=== PATIENT | female | born 2000 | race Caucasian/White ===

== ENCOUNTER 2023-02-06 12:40 | Emergency (ER) | payer OTHER, SELFPAY ==
[2023-02-06 12:53] VITALS: BP 101/77; PULSE 71; RESP 16; TEMP 36.9; O2SAT 100
--- NOTE | 2023-02-06 12:57 | ED.SKABFB ---
HPI - Skin/Abscess/Foreign Bdy General Chief complaint: Skin/Abscess/Foreign Body Stated complaint: RASH Time Seen by Provider: 02/06/23 12:57 Source: RN notes reviewed and old records reviewed Mode of arrival: ambulatory Limitations: no limitations History of Present Illness HPI narrative: 22 year old female accompanied by father with complaints of rash to her face which is fine with slightly pink areas noted over the past several days which is itchy. Patient reports that she has had this same rash in the past and has used Clobestasol ointment but tube she has is . Patient reports that prior to rash starting she noted dorm room hot and she had a lot of sweating. Patient reports she is afraid to let it progress had really bad rash on face in the past and doesn't want it to progress to that situation. MD complaint: rash Onset (ago): day(s) (3-4) Treatments prior to arrival: OTC topical medication Related Data Home Medications Medication Instructions Recorded Confirmed etonogestrel 68 mg subdermal 1 implant subdermal ONCE 02/06/23 02/06/23 implant (Nexplanon) multivitamin 1 tablet PO DAILY 02/06/23 02/06/23 sertraline 25 mg tablet 25 mg PO DAILY 02/06/23 02/06/23 Allergies Allergy/AdvReac Type Severity Reaction Status Date / Time cefdinir Allergy Other Verified 02/06/23 12:57 Review of Systems Review of Systems: CONSTITUTIONAL: Denies fever, chills, or sweats. CARDIOVASCULAR: Denies chest pain, palpitations, or edema. RESPIRATORY: Denies cough or dyspnea. SKIN: Reports patchy fine rash on face that is itchy pinkish areas on chin and cheeks MUSCULOSKELETAL: Denies joint pain or myalgia. NEUROLOGIC: Denies headache, numbness, or weakness. All systems reviewed & are unremarkable except as noted in HPI and below PMFSH Past Medical History Medical History (Updated 02/08/23 @ 06:53 by Lashonda Fulton NP) OCD (obsessive compulsive disorder) Tourettes syndrome Social History Social History (Updated 02/08/23 @ 06:53 by Lashonda Fulton NP) Smoking status: Never smoker Alcohol intake: never Substance use: never Living arrangements: with roommate(s) Occupation/Education: student Gender identity (if verbalized by the patient): Female Comments At time of signature, agree with nursing past medical, surgical, social and family history. There is no relevant family history pertinent to the presenting complaint Exam Narrative: GENERAL: Well-appearing, well-nourished, and in no acute distress. HEAD: Normocephalic, atraumatic. EYES: PERRLA, conjunctivae clear, and EOMI. ENT: Mucous membranes moist. Oropharynx without edema, erythema or lesions. NECK: Supple. No lymphadenopathy CHEST: Clear to auscultation. No respiratory distress.SAO2 100% on room air HEART: Regular rate and rhythm. SKIN: Warm, dry.? Patches of fine raised rash to face with pinkish areas on chin and cheeks is itchy NEURO:? Alert and oriented x3. PSYCH: Normal mood and affect Course Course Emergency Course: Patient is aware of diagnosis, understands and agrees to treatment plan.? Anticipatory guidance given.? Patient agrees to follow-up as directed and is aware of reasons to seek care at the emergency department. Portions of this record may have been created with voice recognition software Level of Care: Express Care Visit Vital Signs Vital signs: Vital Signs Temperature 36.9 C 02/06/23 12:53 Pulse Rate 71 02/06/23 12:53 Respiratory Rate 16 02/06/23 12:53 Blood Pressure 101/77 02/06/23 12:53 Pulse Oximetry 100 02/06/23 12:53 Temperature 36.9 C 02/06/23 12:53 Pulse Rate 71 02/06/23 12:53 Respiratory Rate 16 02/06/23 12:53 Blood Pressure 101/77 02/06/23 12:53 Pulse Oximetry 100 02/06/23 12:53 Reviewed MDM - Skin/Abscess/Foreign Bdy MDM Narrative Medical decision making narrative: Does not appear at this time to be erythema multiforme, bullous, SJS, TEN; no e
== END 2023-02-06 13:15 | disposition home or self-care (01) ==
PROVIDERS: Emergency Provider Registered Nurse
DX: L25.9 Unspecified contact dermatitis, unspecified cause (principal); F42.9 Obsessive-compulsive disorder, unspecified; F95.2 Tourette's disorder
CPT/HCPCS: 99213; G0463

== ENCOUNTER 2024-03-18 14:52 | Emergency (ER) | payer OTHER, SELFPAY ==
[2024-03-18 15:03] VITALS: BP 99/55; PULSE 72; RESP 16; TEMP 37.1; O2SAT 99
--- NOTE | 2024-03-18 15:30 | ED.SKABFB ---
HPI - Skin/Abscess/Foreign Bdy General Chief complaint: Skin/Abscess/Foreign Body Stated complaint: Skin Irritation Time Seen by Provider: 03/18/24 15:30 Source: patient, RN notes reviewed and old records reviewed Mode of arrival: ambulatory Limitations: no limitations History of Present Illness HPI narrative: 23-year-old female presents to the [facility] with complaints a facial rest. Patient states she has had a couple times and usually gets a steroid cream and a oral steroid. Has not seen a primary nor inpatient pharmacist for her issue. Describes it is being very itchy Related Data Home Medications Medication Instructions Recorded Confirmed etonogestrel 68 mg subdermal 1 implant subdermal ONCE 02/06/23 03/18/24 implant (Nexplanon) multivitamin 1 tablet PO DAILY 02/06/23 03/18/24 sertraline 25 mg tablet 25 mg PO DAILY 02/06/23 03/18/24 Allergies Allergy/AdvReac Type Severity Reaction Status Date / Time cefdinir AdvReac Intermediate Other Verified 03/18/24 14:57 Review of Systems Review of Systems: All systems reviewed & are unremarkable except as noted in HPI and below Constitutional: Constitutional: Reports no additional constitutional complaints Eyes: Eyes: Reports no additional eye complaints ENT: Reports system reviewed and no additional complaints, except as documented Cardiovascular: Cardiovascular: Reports no additional cardiovascular complaints, Denies chest pain and Denies dyspnea Respiratory: Respiratory: Reports no additional respiratory complaints, Denies chest congestion, Denies cough and Denies dyspnea Gastrointestinal: Gastrointestinal: Reports no additional gastrointestinal complaints, Denies abdominal pain, Denies nausea and Denies vomiting Musculoskeletal: Musculoskeletal: Reports no additional musculoskeletal complaints Integumentary/Breasts: Skin/Breast: Reports as per HPI Neurologic: Reports system reviewed and no additional complaints, except as documented Psychiatric: Psychiatric: Reports no additional psychiatric complaints Allergic/Immunologic: Allergic/Immunologic: Reports no additional allergic/immunologic complaints [facility] Past Medical History Medical History OCD (obsessive compulsive disorder) Tourettes syndrome Social History Social History Smoking status: Never smoker Alcohol intake: never Substance use: never Living arrangements: with roommate(s) Occupation/Education: student Gender identity (if verbalized by the patient): Female Comments At the time of my signature, I reviewed and agree with the nursing past medical, surgical, social, and family history. There is no relevant family history pertinent to the patient complaint. Exam Const: General: cooperative, healthy appearing, comfortable, no acute distress, well developed, alert and well nourished Nutritional Appearance: well nourished Orientation/consciousness: patient oriented x3 Limitations: no limitations HENMT: Head: normal to inspection Ears: hearing grossly normal bilaterally, external ears normal, TM's normal bilaterally, EAC's normal, mastoids normal and no periauricular adenopathy Face/Nose/Sinus: Normal external nose present, Normal nares present, Normal nasal mucous membranes and turbinates present, normal facial exam and face symmetric Face and sinus: normal facial exam and face symmetric Throat: posterior oropharynx normal, tonsils normal, uvula midline and no uvular edema Eyes: General: appearance normal, both eyes and all related structures Alignment and Position: alignment normal Periorbital: periorbital findings normal Pupils: Equal, round and reactive pupils present EOM: EOMs intact bilaterally Neck: Neck: normal visual inspection, full ROM, no lymphadenopathy and no meningeal signs Chest: Chest palpation & inspection: normal inspection of the chest Resp: Effort & Inspecti
== END 2024-03-18 15:55 | disposition home or self-care (01) ==
PROVIDERS: Emergency Provider Nurse Practitioner; PCP Family Medicine
DX: L30.9 Dermatitis, unspecified (principal); F42.9 Obsessive-compulsive disorder, unspecified
CPT/HCPCS: 99213; G0463